=== PATIENT | male | born 1965 | race Hispanic/Latino ===

== ENCOUNTER 2020-02-01 05:45 | Day surgery (SDC) | payer BC ==
[2020-01-29 12:02] LABS: BASOPHILS % (AUTO) 0.8 % (0.0-5.0); EOSINOPHILS % (AUTO) 1.1 % (0.0-8.0); HEMATOCRIT 40.5 % (42-54); LYMPHOCYTES % (AUTO) 18.8 % (21.0-51.0); MEAN CORPUSCULAR HGB CONC 31.1 g/dL (32.0-36.0); MEAN CORPUSCULAR VOLUME 83.5 fL (79-99); MONOCYTES % (AUTO) 8.1 % (3.0-13.0); PLATELET COUNT (AUTO) 232 K/uL (130-400); RED BLOOD CELL COUNT(AUTO) 4.85 MIL/uL (4.50-6.20); RED CELL DISTRIBUTION WIDTH 15.2 % (11.0-15.5); WHITE BLOOD COUNT (AUTO) 10.3 K/uL (4.8-10.8)
[2020-01-29 12:15] VITALS: BP 108/71
[2020-01-29 12:15] LABS: POTASSIUM 4.3 mmol/L (3.5-5.1)
[2020-01-29 12:16] LABS: APPEARANCE,URINE SL CLOUDY (CLEAR); BILIRUBIN,URINE NEGATIVE (NEGATIVE); COLOR,URINE YELLOW (YELLOW); GLUCOSE, URINE (UA) NEGATIVE (NEGATIVE); KETONES,URINE NEGATIVE (NEGATIVE); LEUKOCYTE ESTERASE ,URINE LARGE (NEGATIVE); NITRATE,URINE NEGATIVE (NEGATIVE); OCCULT BLOOD,URINE MODERATE (NEGATIVE); PH,URINE 5.5 (5.0-8.0); PROTEIN,URINE NEGATIVE (NEGATIVE)
[2020-01-29 12:21] LABS: INR 1.07 (0.85-1.15); PARTIAL THROMBOPLASTIN TIME 31.3 SEC (26.3-35.5); PROTHROMBIN TIME 11.2 SEC (9.6-11.6)
[2020-01-29 12:44] LABS: BACTERIA,URINE Few /HPF (None Seen); WBC,URINE 26-50 /HPF (0-1)
[2020-01-29 12:45] LABS: SQUAMOUS EPITHELIAL CELL,UR 0-2 /HPF (0-2)
--- NOTE | 2020-01-29 16:18 | NUR ---
LABS ABNORMAL UA REPORTED TO Amador MCCANN. NO FURTHER ORDERS GIVEN, OK TO PROCEED WITH PROCEDURE
[~2020-02-01] VITALS: Ht 152.4 cm; Wt 101.2 kg
[2020-02-01] VITALS (9 sets, daily range): BP systolic 100–128; BP diastolic 67–79
[~2020-02-01 05:45] MED LIST: ATOR10 PO; LISI40TA4 PO; METF-445 PO; METO-408 PO
--- NOTE | 2020-02-01 05:55 | NUR ---
PATIENT ARRIVED TO DAY PATIENT ACCOMPANIED BY SON (CEM DE LA GARZAURA). PATIENT AAOX3, RESPIRATIONS UNLABORED, VITAL SIGNS STABLE, DENIES ANY PAIN AT THIS TIME. PROCEDURE VERIFIED WITH PATIENT AND HOSPITAL ROUTINE EXPLAINED TO PATIENT AND SON, BOTH VERBALIZED UNDERSTANDING.
[2020-02-01] MEDS ORDERED: IOHEXOL 350 MG/ML 100ML INFUS..BTL IV ONE (07:17)
[2020-02-01] MEDS ORDERED: IOHEXOL-350 50ML VIAL IV ONE (07:17)
[2020-02-01] MEDS ORDERED: NITROGLYCERIN 2 MG/VIAL VIAL IV ONE (07:17)
[2020-02-01] MEDS ORDERED: HEPARIN SODIUM 1000UNIT/ML 10ML VIAL ONE (07:17)
[2020-02-01] MEDS ORDERED: MIDAZOLAM HCL 1 MG/ML 2ML VIAL ONE (07:17)
[2020-02-01] MEDS ORDERED: LIDOCAINE HCL 2% 20ML ONE (07:18)
[2020-02-01] MEDS ORDERED: FENTANYL CITRATE PF 50 MCG/1 ML 2ML VIAL ONE (07:18)
--- NOTE | 2020-02-01 07:20 | NUR ---
PATIENT TRANSFERRED TO DAIRY SCIENTIST VIA BED BY MELISSA ACOSTA
[2020-02-01] MEDS ORDERED: SODIUM CHLORIDE 0.9% 1000ML 1,000 ML IV ONE (09:01)
--- NOTE | 2020-02-01 09:25 | NUR ---
PATIENT RETURNED TO GENERAL OFFICE ASSOCIATE VIA BED BY MELISSA ACOSTA. PATIENT AAOX3, RESPIRATIONS UNLABORED, VITAL SIGNS STABLE. DRESSING X2 TO RIGHT GROIN. DRESSINGS DRY/INTACT, NO BLEEDING, NO HEMATOMA NOTED. AREA IS SOFT AND NONTENDER. FAMILY AT BEDSIDE.
--- NOTE | 2020-02-01 12:15 | NUR ---
DISCHARGE INSTRUCTIONS PROVIDED TO PATIENT AND PATIENT'S SIGNIFICANT OTHER. FOLLOW UP APPOINTMENT PROVIDED AND INSTRUCTIONS ON FEMORAL SITE CARE WERE PROVIDED WELL. PATIENT INSTRUCTED TO AVOID HEAVY LIFTING AND STRENUOUS ACTIVITY FOR 2 WEEKS, PATIENT VERBALIZED UNDERSTANDING.
== END 2020-02-01 13:55 | disposition home or self-care (01) ==
LOC: DAH 05:45
PROVIDERS: ATTEND Internal Medicine Cardiovascular Disease
DX: I34.0 Nonrheumatic mitral (valve) insufficiency (principal); I25.10 Atherosclerotic heart disease of native coronary artery without angina pectoris; R06.09 Other forms of dyspnea; I10 Essential (primary) hypertension; E78.5 Hyperlipidemia, unspecified; E11.9 Type 2 diabetes mellitus without complications; Z79.899 Other long term (current) drug therapy; Z82.49 Family history of ischemic heart disease and other diseases of the circulatory system; Z79.01 Long term (current) use of anticoagulants
CPT/HCPCS: 36415; 71045; 80048; 81001; 82948; 85025; 85610; 85730; 93005; 93460; A4215; A4216; A4221; A4222; A4223 ×3; A4606; A4663; C1760; C1769; C1894 ×3; J1644; J2250; J3010; J3490 ×2; J7030; Q9965; Q9967; 99156; 99157

== ENCOUNTER 2020-03-31 08:04 | Inpatient (IN) | payer BC ==
[2020-03-31] VITALS (17 sets, daily range): BP systolic 96–155; BP diastolic 50–86
[~2020-03-31] VITALS: Ht 175.3 cm; Wt 91.0 kg
[~2020-03-31 08:04] MED LIST changes: +ALBUMIN (HUMAN) 25% 50 ML IV ONE; +AMINOCAPROIC ACID 250 MG/ML 20 ML VIAL IV ONE; +CALCIUM CHLORIDE 100 MG/ML 10 ML SYG IVP ONE; +HEPARIN SODIUM 1000UNIT/ML 10ML VIAL IV ONE; +MAGNESIUM SULFATE 1 GM/2 ML VIAL IM ONE; +MANNITOL 25% 50ML VIAL IV ONE; +PHENYLEPHRINE HCL 10 MG/ML 1ML VIAL IV ONE; +SODIUM BICARB 8.4% 50ML SYRINGE IVP ONE
[2020-03-31] MEDS ORDERED: AMINOCAPROIC ACID 15,000 MG in SODIUM CHLORIDE 0.9% 500ML 500 ML IV PRN (09:15)
[2020-03-31] MEDS ORDERED: NOREPINEPHRINE BITARTRATE 8 MG in DEXTROSE 5%-WATER 250 ML IV PRN (09:15)
[2020-03-31] MEDS ORDERED: EPINEPHRINE 10 MG in SODIUM CHLORIDE 0.9% 240 ML IV PRN (09:15)
[2020-03-31] MEDS ORDERED: CEFAZOLIN SODIUM 1 GM VIAL ONE (09:47)
[2020-03-31] MEDS ORDERED: ROPIVACAINE 0.5% 5MG/ML 30ML IJ ONE (09:47)
[2020-03-31 10:17] LABS: BASOPHILS % (AUTO) 0.6 % (0.0-5.0); EOSINOPHILS % (AUTO) 0.3 % (0.0-8.0); LYMPHOCYTES % (AUTO) 16.1 % (21.0-51.0); MEAN CORPUSCULAR HEMOGLOBIN 26.1 pg (27.0-33.0); MEAN CORPUSCULAR HGB CONC 31.8 g/dL (32.0-36.0); MEAN CORPUSCULAR VOLUME 82.1 fL (79-99); MONOCYTES % (AUTO) 6.9 % (3.0-13.0); NEUTROPHILS % (AUTO) 75.8 % (40.0-77.0); PLATELET COUNT (AUTO) 257 K/uL (130-400); RED BLOOD CELL COUNT(AUTO) 4.75 MIL/uL (4.50-6.20); RED CELL DISTRIBUTION WIDTH 15.4 % (11.0-15.5); WHITE BLOOD COUNT (AUTO) 11.5 K/uL (4.8-10.8)
[2020-03-31 10:26] LABS: POTASSIUM 4.2 mmol/L (3.5-5.1)
[2020-03-31 10:28] LABS: INR 1.06 (0.85-1.15); PARTIAL THROMBOPLASTIN TIME 30.6 SEC (26.3-35.5); PROTHROMBIN TIME 11.4 SEC (9.6-11.6)
[2020-03-31 10:32] LABS: BILIRUBIN,TOTAL 0.5 mg/dL (0.2-1.0)
[2020-03-31 10:34] LABS: HEMOGLOBIN A1C 6.5 % (4.0-6.0)
[2020-03-31] MEDS ORDERED: AMIODARONE HCL 50 MG/ML 3 ML VIAL ONE (10:50)
[2020-03-31] MEDS ORDERED: NITROGLYCERIN 50 MG/D5% WATER 1 BOT ONE (10:50)
[2020-03-31] MEDS ORDERED: ESMOLOL HCL 10 MG/ML 10 ML VIAL ONE ×2 (10:50→12:26)
[2020-03-31] MEDS ORDERED: SODIUM CHLORIDE 0.9% 1000ML 1,000 ML IV ONE (10:53)
[2020-03-31] MEDS: CEFUROXIME SODIUM 1.5 GM VIAL ONE ×2 (11:12→12:40)
--- NOTE | 2020-03-31 11:19 | NUR ---
potential for infection: clipped from chin to bilateral toes per [facility], followed by wiping with leonor: 2% chlorhexidine gluconate cloth patients pre-op skin prep.
[2020-03-31] MEDS ORDERED: IBUP-14 PO (11:23)
[2020-03-31] MEDS ORDERED: METO25TA6 PO (11:23)
[2020-03-31] MEDS ORDERED: MECL-183 PO (11:23)
[2020-03-31] MEDS ORDERED: HEPARIN SODIUM 1000UNIT/ML 10ML VIAL ONE (12:26)
[2020-03-31] MEDS ORDERED: EPINEPHRINE 1 MG/ML AMPULE ONE (12:26)
[2020-03-31] MEDS ORDERED: PROTAMINE SULFATE 10 MG/ML 25ML VIAL IV ONE (12:26)
[2020-03-31] MEDS ORDERED: AMINOCAPROIC ACID 250 MG/ML 20 ML VIAL IV ONE (12:26)
[2020-03-31] MEDS ORDERED: SODIUM BICARB 50MEQ 50ML VIAL ONE (12:26)
[2020-03-31] MEDS ORDERED: LIDOCAINE PF 2% 5ML ABBOJECT ONE (12:26)
[2020-03-31] MEDS ORDERED: FENTANYL CITRATE PF 50 MCG/1 ML 20ML VIAL IJ ONE (12:26)
[2020-03-31] MEDS ORDERED: NOREPINEPHRINE BITARTRATE 1 MG/1 ML ML IV ONE ×2 (12:26→13:57)
[2020-03-31] MEDS ORDERED: PROPOFOL 10 MG/ML 20ML VIAL IV ONE (12:27)
[2020-03-31] MEDS ORDERED: ROCURONIUM 10MG/1ML SYR 10 MG/ML ML ONE (12:27)
[2020-03-31] MEDS ORDERED: KETAMINE 50MG/ML SYRINGE 50 MG/ML DISP.SYRIN IV ONE (12:27)
[2020-03-31] MEDS ORDERED: MIDAZOLAM HCL 1 MG/ML 2ML VIAL ONE (12:27)
[2020-03-31] MEDS ORDERED: DELNIDO FORMULA 1 BAG IV ONE (12:34)
[2020-03-31 13:16] LABS: ABG BASE EXCESS -0.5 mmol/L (-2.0-3.0); ABG HCO3 22.6 mmol/L (21.0-28.0); ABG OXYGEN SATURATION 99.5 % (95.0-99.0); ABG PCO2 32 mmHg (35-48)
[2020-03-31] MEDS ORDERED: SODIUM CHLORIDE 0.9% 500ML 500 ML IV SCH (13:37)
[2020-03-31] MEDS ORDERED: TRAMADOL HCL 50 MG TABLET PO PRN (13:45)
[2020-03-31] MEDS ORDERED: ACETAMINOPHEN 650 MG SUPPOSITORY RC PRN (13:45)
[2020-03-31] MEDS ORDERED: NITROGLYCERIN 50 MG/D5% WATER 250 BOT IV SCH (13:45)
[2020-03-31] MEDS ORDERED: GLUCAGON 1MG KIT 1 MG ML IM PRN (13:45)
[2020-03-31] MEDS ORDERED: MAGNESIUM 2GM PREMIX 50ML 50 ML IV PRN (13:45)
[2020-03-31] MEDS ORDERED: MORPHINE SULFATE 4 MG/1ML SYG IV PRN (13:45)
[2020-03-31] MEDS ORDERED: SODIUM CHLORIDE 0.9% 250 ML IV PRN (13:45)
[2020-03-31] MEDS ORDERED: EPINEPHRINE 10 MG in DEXTROSE 5%-WATER 250 ML IV PRN (13:45)
[2020-03-31] MEDS ORDERED: INSULIN REGULAR, HUMAN 3ML 100 UNIT in SODIUM CHLORIDE 0.9% 99 ML IV SCH ×2 (13:45)
[2020-03-31] MEDS ORDERED: NOREPINEPHRINE 4MG/NS 250ML 250 ML IV PRN (13:45)
[2020-03-31] MEDS ORDERED: ONDANSETRON HCL 4 MG/2 ML VIAL IV PRN (13:45)
[2020-03-31] MEDS ORDERED: ALBUMIN (HUMAN) 5% 250 ML IV PRN (13:45)
[2020-03-31] MEDS ORDERED: POTASSIUM PHOS 15 mMOL+NS250ML 250 ML IV PRN (13:45)
[2020-03-31] MEDS ORDERED: SODIUM CHLORIDE 0.9% 1000ML 1,000 ML IV SCH (13:45)
[2020-03-31] MEDS ORDERED: DEXTROSE 50%-WATER 50 ML DISP.SYRIN IV PRN (13:45)
[2020-03-31] MEDS ORDERED: ACETAMINOPHEN 325 MG TAB PO PRN (13:45)
[2020-03-31] MEDS ORDERED: PROPOFOL 1000 MG/100 ML 100 ML IV PRN (13:45)
[2020-03-31] MEDS ORDERED: MORPHINE SULFATE 2 MG/ML 1ML SYG IV PRN (13:45)
[2020-03-31] MEDS ORDERED: AMINOCAPROIC ACID 15,000 MG in SODIUM CHLORIDE 0.9% 250 ML IV SCH (13:45)
[2020-03-31] MEDS ORDERED: SODIUM CHLORIDE 0.9% 10 ML VIAL IVP PRN (13:45)
[2020-03-31 14:02] LABS: ABG BASE EXCESS -2.3 mmol/L (-2.0-3.0); ABG HCO3 21.3 mmol/L (21.0-28.0); ABG OXYGEN SATURATION 97.4 % (95.0-99.0); ABG PCO2 32 mmHg (35-48)
[2020-03-31 14:30] LABS: ABG HCO3 18.2 mmol/L (21.0-28.0); ABG OXYGEN SATURATION 98.4 % (95.0-99.0); ABG PCO2 36 mmHg (35-48)
[2020-03-31] MEDS ORDERED: Q-PUMP 1 EACH IRRIG SCH (14:30)
[2020-03-31] MEDS ORDERED: GLYCOPYRROLATE 1 MG/5 ML SYRINGE ONE (14:35)
[2020-03-31 15:06] LABS: ABG BASE EXCESS -5.1 mmol/L (-2.0-3.0); ABG HCO3 19.1 mmol/L (21.0-28.0); ABG PCO2 32 mmHg (35-48)
[2020-03-31] MEDS ORDERED: ROPIVACAINE 0.2% 2MG/ML 100ML VIAL IJ ONE (15:07)
--- NOTE | 2020-03-31 15:25 | NUR ---
S/P MICS MV REPAIR SEDATED, INTUBATED, NON-RESPONSIVE. ET TUBE SECURE. R.T. CONNECTED TO VENT SIMV 12/650/+5/60% PS 10. INITIATED BEDSIDE MONITORING. ALL TUBES AND LINES SECURE. CHEST TUBE TO 20CM H20 SUCTION. LEVOPHED, EPINEPHRINE, AMIKAR DRIPS INFUSING PER RT IJ CORDIS. -REFER TO I&O FOR RATES. WILL INITIATE VENT AND DRIP WEANING PER CVR PROTOCOL.
[2020-03-31 15:38] LABS: ABG BASE EXCESS -2.8 mmol/L (-2.0-3.0); ABG HCO3 22.5 mmol/L (21.0-28.0); ABG OXYGEN SATURATION 95.6 % (95.0-99.0); ABG PCO2 41 mmHg (35-48)
[2020-03-31] MEDS: SODIUM BICARB 50MEQ 50ML VIAL IV PRN ×2 (15:39→15:40)
[2020-03-31] MEDS: POTASSIUM CHLORIDE 20MEQ/100ML 100 ML IV PRN (15:40)
[2020-03-31] MEDS: CALCIUM GLUCONATE 1 GM in SODIUM CHLORIDE 0.9% 50 ML IV PRN ×3 (15:58→22:16)
[2020-03-31 16:10] LABS: HEMATOCRIT 28.9 % (42-54); MEAN CORPUSCULAR HEMOGLOBIN 26.8 pg (27.0-33.0); MEAN CORPUSCULAR HGB CONC 32.5 g/dL (32.0-36.0); MEAN CORPUSCULAR VOLUME 82.3 fL (79-99); PLATELET COUNT (AUTO) 193 K/uL (130-400); RED BLOOD CELL COUNT(AUTO) 3.51 MIL/uL (4.50-6.20); RED CELL DISTRIBUTION WIDTH 15.3 % (11.0-15.5)
[2020-03-31 16:18] LABS: WHITE BLOOD COUNT (AUTO) 32.1 K/uL (4.8-10.8)
[2020-03-31 16:24] LABS: CREATININE 1.1 mg/dL (0.5-1.5); INR 1.2 (0.85-1.15); MAGNESIUM 2.9 mg/dL (1.80-2.40); PHOSPHORUS 4.8 mg/dL (2.5-4.9); POTASSIUM 3.4 mmol/L (3.5-5.1); PROTHROMBIN TIME 12.9 SEC (9.6-11.6)
[2020-03-31 16:52] LABS: BAND NEUTROPHILS % (MANUAL) 4 % (0-2); BASOPHILS % (MANUAL) 1 % (0-2); EOSINOPHILS % (MANUAL) 1 % (1-6); LYMPHOCYTES % (MANUAL) 6 % (22-44); MAN.DIFF COMMENT-IMPRESSION MANUAL DIFFERENTIAL; MONOCYTES % (MANUAL) 8 % (2-9); SEGMENTED NEUTROPHILS % 80 % (40-70)
[2020-03-31 16:53] LABS: PLATELET MORPHOLOGY COMMENT ADEQUATE
[2020-03-31 17:02] LABS: ABG BASE EXCESS 0.9 mmol/L (-2.0-3.0); ABG HCO3 26.8 mmol/L (21.0-28.0); ABG OXYGEN SATURATION 94.6 % (95.0-99.0); ABG PCO2 49 mmHg (35-48)
[2020-03-31] MEDS ORDERED: SODIUM BICARB 50MEQ 50ML VIAL IV PRN (18:00)
[2020-03-31 18:19] LABS: ABG BASE EXCESS 3.4 mmol/L (-2.0-3.0); ABG HCO3 28.4 mmol/L (21.0-28.0); ABG OXYGEN SATURATION 97.9 % (95.0-99.0); ABG PCO2 45 mmHg (35-48)
[2020-03-31] MEDS: CEFAZOLIN SODIUM 1 GM VIAL IV SCH (18:33)
[2020-03-31] MEDS ORDERED: ALBUMIN (HUMAN) 5% 250 ML IV ONE (19:30)
[2020-03-31] MEDS ORDERED: PHARMACY COMMUNICATION MISC SCH (19:45)
[2020-03-31] MEDS: FAMOTIDINE/PF 20 MG/2 ML VIAL IV SCH (19:56)
[2020-03-31 20:25] LABS: ABG BASE EXCESS 1.8 mmol/L (-2.0-3.0); ABG HCO3 26.8 mmol/L (21.0-28.0); ABG OXYGEN SATURATION 98.2 % (95.0-99.0); ABG PCO2 43 mmHg (35-48)
[2020-03-31 22:16] LABS: ABG BASE EXCESS 0.2 mmol/L (-2.0-3.0); ABG OXYGEN SATURATION 98.4 % (95.0-99.0); ABG PCO2 41 mmHg (35-48)
--- NOTE | 2020-03-31 22:30 | NUR ---
EXTUBATION PT TOLERATED WEANING WELL ABG WITHIN PARAMETERS. PT HAS [employer] AND AND ABLE TO LIFT HEAD AND HOLD. HE ACHIEVED -41 ON NIF AND 1130 ON VC. PT WAS EXTUBATED AND PLACED ON 40% CAFM HE WAS ENCOURAGED TO TAKE SLOW DEEP BREATHS. WILL CONTINUE TO MONITOR.
[2020-04-01] VITALS (31 sets, daily range): BP systolic 118–183; BP diastolic 58–99
[2020-04-01 00:01] LABS: ABG BASE EXCESS 2.2 mmol/L (-2.0-3.0); ABG HCO3 27.8 mmol/L (21.0-28.0); ABG PCO2 47 mmHg (35-48)
[2020-04-01] MEDS: CEFAZOLIN SODIUM 1 GM VIAL IV SCH ×2 (02:28→10:49)
[2020-04-01 03:58] LABS: ABG HCO3 27.1 mmol/L (21.0-28.0); ABG PCO2 44 mmHg (35-48)
[2020-04-01 04:11] LABS: HEMATOCRIT 31.9 % (42-54); MEAN CORPUSCULAR HEMOGLOBIN 25.8 pg (27.0-33.0); MEAN CORPUSCULAR HGB CONC 31.7 g/dL (32.0-36.0); MEAN CORPUSCULAR VOLUME 81.4 fL (79-99); RED BLOOD CELL COUNT(AUTO) 3.92 MIL/uL (4.50-6.20); RED CELL DISTRIBUTION WIDTH 15.5 % (11.0-15.5)
[2020-04-01] MEDS: CALCIUM GLUCONATE 1 GM in SODIUM CHLORIDE 0.9% 50 ML IV PRN ×2 (04:21→17:23)
[2020-04-01 04:34] LABS: CREATININE 0.9 mg/dL (0.5-1.5); MAGNESIUM 2.2 mg/dL (1.80-2.40); PHOSPHORUS 4.4 mg/dL (2.5-4.9); POTASSIUM 3.9 mmol/L (3.5-5.1)
[2020-04-01 04:49] LABS: INR 1.12 (0.85-1.15); PARTIAL THROMBOPLASTIN TIME 26.3 SEC (26.3-35.5)
[2020-04-01] MEDS: POTASSIUM CHLORIDE 20MEQ/100ML 100 ML IV PRN (04:53)
[2020-04-01] MEDS: ATORVASTATIN CALCIUM 20 MG TABLET PO SCH (09:00)
[2020-04-01] MEDS: ASPIRIN 81 MG EC TAB PO SCH (09:00)
[2020-04-01] MEDS: FUROSEMIDE 10 MG/ML 2ML VIAL IV SCH ×2 (09:02→21:32)
[2020-04-01] MEDS: TRAMADOL HCL 50 MG TABLET PO PRN ×2 (09:02→17:36)
[2020-04-01] MEDS: FAMOTIDINE/PF 20 MG/2 ML VIAL IV SCH ×2 (09:02→21:31)
--- NOTE | 2020-04-01 16:06 | NUR ---
ATTEMPTED TO CALL SPOUSE ILENE MENESES, NO ANSWER X2 CALL TO OTHER NUMBER PROIVDED ON FACE SHEET, NO ANSWER Addendum: 04/01/20 at 1607 by JURGEN MATSON RN CM Amended: Links added.
--- NOTE | 2020-04-01 20:15 | NUR ---
ASSESSMENT PT RESTING QUIETLY IN BED. DENIES ANY PAIN OR DISCOMFORT. INSULIN GTT INFUSING, BLOOD SUGARS Q2H, SEE FLOW SHEET. RIGHT CHEST TUBE PATENT AND INTACT. SCD/DELMA IN PACE. CALLBELL REVIEWED AND WITHIN REACH. ASSESSMENT COMPLETED, SEE FLOW SHEET
--- NOTE | 2020-04-01 20:27 | NUR ---
DR RIVERA. DR RIVERA INTO SEE PT. DR RIVERA MADE AWARE OF BP AND NITRO IV TO BE STARTED. DR RIVERA DECLINED NITRO AND ORDERS LISINOPRIL. SEE ORDERS
[2020-04-01] MEDS ORDERED: LISINOPRIL 10 MG TABLET PO SCH (20:34)
--- NOTE | 2020-04-01 21:00 | NUR ---
FAMILY PT SPOKE WITH VIA TELEPHONE
--- NOTE | 2020-04-01 21:30 | NUR ---
FAMILY PT SPOKE WITH SISTER VIA TELEPHONE
[2020-04-02] VITALS (19 sets, daily range): BP systolic 107–186; BP diastolic 69–101
[2020-04-02 04:11] LABS: HEMATOCRIT 31.2 % (42-54); MEAN CORPUSCULAR HEMOGLOBIN 25.7 pg (27.0-33.0); MEAN CORPUSCULAR HGB CONC 31.4 g/dL (32.0-36.0); MEAN CORPUSCULAR VOLUME 81.7 fL (79-99); RED BLOOD CELL COUNT(AUTO) 3.82 MIL/uL (4.50-6.20); RED CELL DISTRIBUTION WIDTH 15.5 % (11.0-15.5); WHITE BLOOD COUNT (AUTO) 12.1 K/uL (4.8-10.8)
[2020-04-02 04:16] LABS: CREATININE 0.8 mg/dL (0.5-1.5); POTASSIUM 3.8 mmol/L (3.5-5.1)
[2020-04-02] MEDS: POTASSIUM CHLORIDE 20MEQ/100ML 100 ML IV PRN ×2 (05:01→06:22)
[2020-04-02] MEDS: FUROSEMIDE 20 MG TABLET PO SCH ×2 (07:33→16:29)
[2020-04-02] MEDS: ATORVASTATIN CALCIUM 20 MG TABLET PO SCH (07:33)
[2020-04-02] MEDS: ASPIRIN 81 MG EC TAB PO SCH (07:33)
[2020-04-02] MEDS: METOPROLOL TARTRATE 25 MG TAB PO SCH ×2 (07:34→21:00)
[2020-04-02] MEDS: LISINOPRIL 20 MG TABLET PO SCH (07:34)
[2020-04-02] MEDS: FAMOTIDINE/PF 20 MG/2 ML VIAL IV SCH ×2 (07:36→21:00)
[2020-04-02] MEDS: ACETAMINOPHEN 325 MG TAB PO PRN ×2 (07:36→21:10)
[2020-04-02] MEDS: TRAMADOL HCL 50 MG TABLET PO PRN (13:54)
[2020-04-03 03:22] VITALS: BP 149/85
[2020-04-03] MEDS: TRAMADOL HCL 50 MG TABLET PO PRN (03:41)
--- NOTE | 2020-04-03 03:48 | NUR ---
CHEST PAIN PT C/O LEFT SIDED CHEST PAIN. REPORTS "STABBING" SENSATION. PT REPOSITIONED IN BED. ADMINISTERED PAIN MEDICATIONS PER JAN. DOOR LEFT OPEN TO CONTINUE MONITORING. CALL LIGHT ON BED WITHIN REACH, REINFORCED FOR PT TO CALL IF CHEST PAIN PERSISTS OR WORSENS- PT VERBALIZED AGREEMENT.
--- NOTE | 2020-04-03 04:32 | NUR ---
PAIN REASSESSMENT PT REPORTS DECREASE IN PAIN INTENSITY, 5 OUT OF 10. INFORMED PT TO CALL [employer]IGHT IF PAIN INTENSITY RETURNS. WILL CONTINUE MONITORING THE PT.
[2020-04-03 05:15] LABS: HEMATOCRIT 32.7 % (42-54); MEAN CORPUSCULAR HEMOGLOBIN 25.8 pg (27.0-33.0); MEAN CORPUSCULAR HGB CONC 32.1 g/dL (32.0-36.0); MEAN CORPUSCULAR VOLUME 80.3 fL (79-99); RED BLOOD CELL COUNT(AUTO) 4.07 MIL/uL (4.50-6.20); RED CELL DISTRIBUTION WIDTH 14.7 % (11.0-15.5); WHITE BLOOD COUNT (AUTO) 9.6 K/uL (4.8-10.8)
[2020-04-03 05:23] LABS: CREATININE 0.9 mg/dL (0.5-1.5); POTASSIUM 3.4 mmol/L (3.5-5.1)
[2020-04-03] MEDS: POTASSIUM CHLORIDE 20MEQ/100ML 100 ML IV PRN (06:02)
[2020-04-03] MEDS ORDERED: POTASSIUM CHLORIDE 20MEQ/100ML 100 ML IV PRN (06:30)
[2020-04-03] MEDS ORDERED: LIDOCAINE HCL-MPF 1% 2ML VIAL IV PRN (06:30)
[2020-04-03] MEDS ORDERED: POTASSIUM CHLORIDE 10% ELIXIR 20 MEQ/15 ML UDCUP PO PRN (06:30)
[2020-04-03] MEDS: POTASSIUM CHLORIDE 20 MEQ ERTAB PO PRN ×2 (06:45→08:09)
[2020-04-03 07:14] VITALS: BP 131/87
[2020-04-03] MEDS: ASPIRIN 81 MG EC TAB PO SCH (08:08)
[2020-04-03] MEDS: METFORMIN HCL 850 MG TABLET PO SCH ×2 (08:08→16:14)
[2020-04-03] MEDS: LISINOPRIL 20 MG TABLET PO SCH (08:08)
[2020-04-03] MEDS: ATORVASTATIN CALCIUM 20 MG TABLET PO SCH (08:08)
[2020-04-03] MEDS: METOPROLOL TARTRATE 25 MG TAB PO SCH ×2 (08:09→20:09)
[2020-04-03] MEDS: FUROSEMIDE 20 MG TABLET PO SCH ×2 (08:09→16:14)
[2020-04-03] MEDS: ENOXAPARIN SODIUM 30 MG/0.3 ML SQ SCH (08:12)
[2020-04-03] MEDS: FAMOTIDINE 20MG TAB 20 MG TAB PO SCH ×2 (08:21→20:09)
[2020-04-03 10:42] VITALS: BP 134/89
[2020-04-03 15:48] VITALS: BP 119/73
[2020-04-03 19:32] VITALS: BP 127/79
[2020-04-03 23:26] VITALS: BP 133/87
[2020-04-04 03:58] VITALS: BP 144/90
[2020-04-04 05:20] LABS: HEMATOCRIT 33.9 % (42-54); MEAN CORPUSCULAR HEMOGLOBIN 26.1 pg (27.0-33.0); MEAN CORPUSCULAR HGB CONC 32.4 g/dL (32.0-36.0); MEAN CORPUSCULAR VOLUME 80.5 fL (79-99); RED BLOOD CELL COUNT(AUTO) 4.21 MIL/uL (4.50-6.20); RED CELL DISTRIBUTION WIDTH 14.8 % (11.0-15.5); WHITE BLOOD COUNT (AUTO) 9.7 K/uL (4.8-10.8)
[2020-04-04 05:55] LABS: POTASSIUM 3.5 mmol/L (3.5-5.1)
[2020-04-04 07:46] VITALS: BP 110/80
[2020-04-04] MEDS: METFORMIN HCL 850 MG TABLET PO SCH ×2 (08:05→16:39)
[2020-04-04] MEDS: ASPIRIN 81 MG EC TAB PO SCH (09:22)
[2020-04-04] MEDS: FAMOTIDINE 20MG TAB 20 MG TAB PO SCH (09:22)
[2020-04-04] MEDS: FUROSEMIDE 20 MG TABLET PO SCH ×2 (09:23→16:39)
[2020-04-04] MEDS: ATORVASTATIN CALCIUM 20 MG TABLET PO SCH (09:23)
[2020-04-04] MEDS: METOPROLOL TARTRATE 25 MG TAB PO SCH (09:23)
[2020-04-04] MEDS: LISINOPRIL 20 MG TABLET PO SCH (09:23)
[2020-04-04] MEDS: ENOXAPARIN SODIUM 30 MG/0.3 ML SQ SCH (09:24)
[2020-04-04 12:00] VITALS: BP 118/84
[2020-04-04 16:00] VITALS: BP 113/73
[2020-04-04] MEDS ORDERED: TRAM50TA4 PO (16:39)
[2020-04-04] MEDS ORDERED: FURO20TA6 PO (16:39)
[2020-04-04] MEDS ORDERED: LISI-613 PO (16:39)
[2020-04-04] MEDS ORDERED: METO25 PO (16:39)
[2020-04-04] MEDS ORDERED: AEC81 PO (16:39)
== END 2020-04-04 19:45 | disposition home or self-care (01) | DRG 219 ==
LOC: DAHIP 08:04 → PAH.CVR 14:22 → DAHIP 04-01 05:57 → 4DH 04-02 15:48
PROVIDERS: ADMIT Thoracic Surgery (Cardiothoracic Vascular Surgery); ATTEND Thoracic Surgery (Cardiothoracic Vascular Surgery)
PROC: 5A1221Z Performance of Cardiac Output, Continuous (ICD-10-PCS; 2020-03-31)
PROC: B24BZZ4 Ultrasonography of Heart with Aorta, Transesophageal (ICD-10-PCS; 2020-03-31)
PROC: 02UG0JZ Supplement Mitral Valve with Synthetic Substitute, Open Approach (ICD-10-PCS; principal; 2020-03-31 12:25)
PROC: 02BG0ZZ Excision of Mitral Valve, Open Approach (ICD-10-PCS; 2020-03-31 12:25)
DX: I34.0 Nonrheumatic mitral (valve) insufficiency (principal); I50.33 Acute on chronic diastolic (congestive) heart failure; J81.1 Chronic pulmonary edema; E78.00 Pure hypercholesterolemia, unspecified; R09.02 Hypoxemia; I11.0 Hypertensive heart disease with heart failure; E78.5 Hyperlipidemia, unspecified; E87.70 Fluid overload, unspecified; R06.89 Other abnormalities of breathing; E11.9 Type 2 diabetes mellitus without complications; Z79.899 Other long term (current) drug therapy; Z82.49 Family history of ischemic heart disease and other diseases of the circulatory system
CPT/HCPCS: 36415; 71045; 71046; 80048; 80053; 82330; 82435; 82803; 82947; 82948; 83036; 83605; 83735; 84100; 84132; 84295; 85018; 85025; 85027; 85347; 85610; 85730; 86850; 86900; 86901; 86922; 87070; 87076; 87077; 87116; 87186; 87205; 87206; 93005; 93313; 93318; 93880; 94002; 94010; 94150; 97039; A4357; A7048; G0378; J0171; J0282; J0610; J0690; J0697; J1644; J1650; J1815; J1940; J2001; J2150; J2250; J2270; J2370; J2405; J2704; J2720; J2795; J3010; J3475; J3480; J3490; J7030; J7040; P9045; P9047